=== PATIENT | female | born 1990 | race African-American/Black ===

== ENCOUNTER 2017-03-21 11:45 | Inpatient (IN) | payer OTHER ==
[2017-03-21] MEDS: DEXTROSE 5%-LACTATED RINGERS 1,000 ML IV SCH (14:00)
[2017-03-21 14:12] LABS: BASOPHIL 0.3 % (0-2.0); EOSINOPHIL 0.9 % (0-4.5); MCH 31.7 pg (25.7-33.7); MCHC 33.7 g/dl (32.0-36.0); MEAN CELL VOLUME 94.2 fl (80-96); MEAN PLT VOLUME 8.1 fl (7.5-11.1); NEUTROPHILS 66.6 % (42.8-82.8); PLATELET COUNT 200 K/MM3 (134-434); RDW 14.5 % (11.6-15.6); WHITE BLOOD COUNT 8.4 K/mm3 (4.0-10.0)
[2017-03-21 14:23] VITALS: BMI 30.5
[2017-03-21 14:34] LABS: ANION GAP 10 (8-16); CALCIUM 8.4 mg/dL (8.5-10.1); CO2 22 mmol/L (21-32); CREATININE 0.4 mg/dL (0.55-1.02); GLUCOSE,RANDOM 95 mg/dL (74-106)
[2017-03-21] MEDS ORDERED: DINOPROSTONE 10 MG VAGINAL SUPPOSITORY VG ONE (14:40)
--- NOTE | 2017-03-21 14:46 | HP ---
Past Medical History - Admission Chief Complaint: Posterm History of Present Illness: 26 yo , @ 40 weeks gestation, EDC 03/18/17, sent for BPP. BPP was 02/01; NST was not reassuring. Decision made for induction of labor with Cervidil. History Source: Patient Limitations to Obtaining History: No Limitations - Past Medical History ...: 1 ...Para: 0 ...Term: 0 ...: 0 ...Spon : 0 ...Induced : 0 ...Multiple Gestation: 0 ...LMP: 06/11/16 ... Weeks Gestation by Dates: 40.3 ...EDC by Dates: 03/18/17 ...EDC by Sono: 03/18/16 - Past Surgical History Past Surgical History: Yes: None Hx Myomectomy: No Hx Transabdominal Cerclage: No - Smoking History Smoking history: Never smoked Have you smoked in the past 12 months: No - Alcohol/Substance Use Hx Alcohol Use: No History of Substance Use: reports: None - Social History History of Recent Travel: No Family Disease History - Family Disease History Family History: Unremarkable Review of Systems - Review of Systems Constitutional: reports: No Symptoms Eyes: reports: No Symptoms HENT: reports: No Symptoms Neck: reports: No Symptoms Cardiovascular: reports: No Symptoms Respiratory: reports: No Symptoms Gastrointestinal: reports: No Symptoms Genitourinary: reports: No Symptoms Breasts: reports: No Symptoms Reported Musculoskeletal: reports: No Symptoms Integumentary: reports: No Symptoms Neurological: reports: No Symptoms Endocrine: reports: No Symptoms Hematology/Lymphatic: reports: No Symptoms Psychiatric: reports: No Symptoms Pain Intensity: 0 Physical Exam - Maternity Vital Signs: Vital Signs Temperature 98.8 F 03/21/17 14:00 Pulse Rate 83 03/21/17 14:00 Respiratory Rate 20 03/21/17 14:00 Blood Pressure 113/56 03/21/17 14:00 O2 Sat by Pulse Oximetry (%) Constitutional: Yes: Well Nourished Eyes: Yes: Conjunctiva Clear HENT: Yes: Atraumatic Neck: Yes: Supple Cardiovascular: Yes: Regular Rate and Rhythm - Abdominal Exam/OB Number of Fetuses: Single Presentation: Vertex Intensity: Unaware - Vaginal Exam/OB Dilatation (cm): 0 Effacement (%): 60 Amniotic Membrane Status: Intact Station: -2 - Physical Exam ...Motor Strength: WNL Psychiatric: Yes: Alert, Oriented - Labs Lab Results: CBC, BMP 03/21/17 13:50 03/21/17 13:50 Problem List - Problems (1) , post-term Code(s): O48.0 - POST-TERM Assessment/Plan Post Term Non Reassuring Heart rate Cervidil induction Continue close monitoring
[2017-03-21] MEDS ORDERED: SODIUM CHLORIDE 1,000 ML IV ONE (15:00)
[2017-03-21 15:06] LABS: INR 1.06 (0.82-1.09); PROTHROMBIN TIME (PATIENT) 11.7 SEC (9.98-11.88)
[2017-03-21 15:08] LABS: ACTIVATED PTT 30.1 SECONDS (26.9-34.4)
[2017-03-21] MEDS: PROMETHAZINE HCL 25 MG/1 ML VIAL IVPB PRN (21:55)
[2017-03-21] MEDS: BUTORPHANOL TARTRATE 1 MG/ML VIAL IVPUSH PRN (21:55)
[2017-03-22] MEDS: DEXTROSE 5%-LACTATED RINGERS 1,000 ML IV SCH (02:00)
[2017-03-22] MEDS ORDERED: OXYTOCIN 15 UNITS/ LR 250 ML 250 ML IVPB SCH (05:45)
[2017-03-22] MEDS: PROMETHAZINE HCL 25 MG/1 ML VIAL IVPB PRN (06:55)
[2017-03-22] MEDS: BUTORPHANOL TARTRATE 1 MG/ML VIAL IVPUSH PRN (06:55)
--- NOTE | 2017-03-22 10:27 | PN ---
Progress Note (short form) - Note Progress Note: 10.10 AM 1 cm/70%/MR/Vx -3 AROM done meconium stained light to moderate scalp electrode applied . FHR 150 , low btb variablity , cat-2 plan delivery by Primary c/section , pending OR available. stop trial of labor stop pitocin Selected Entries 03/22/17 09:00 Pulse Rate 98 H Blood Pressure 115/50 Laboratory Tests 03/21/17 03/21/17 03/21/17 13:50 13:50 13:50 WBC 8.4 Hgb 13.0 Hct 38.6 Plt Count 200 Neutrophils % 66.6 Lymphocytes % 24.1 PT with INR 11.70 INR 1.06 PTT (Actin FS) 30.1 Sodium 139 Potassium 4.0 Chloride 107 Carbon Dioxide 22 BUN 4 L Creatinine 0.4 L Random Glucose 95 Calcium 8.4 L RPR Titer 03/21/17 13:50 WBC Hgb Hct Plt Count Neutrophils % Lymphocytes % PT with INR INR PTT (Actin FS) Sodium Potassium Chloride Carbon Dioxide BUN Creatinine Random Glucose Calcium RPR Titer Nonreactive
[2017-03-22] MEDS ORDERED: ELECTROLYTE-148 SOLN 500 ML IV ONE (10:28)
[2017-03-22] MEDS ORDERED: ELECTROLYTE-148 SOLN 1,000 ML IV SCH (10:30)
[2017-03-22] MEDS ORDERED: CITRIC ACID/SODIUM CITRATE 30 ML UNIT-DOSE CUP PO ONE (10:45)
[2017-03-22] MEDS ORDERED: ONDANSETRON 4 MG/2 ML VIAL IVPB PRN (12:54)
[2017-03-22 13:08] LABS: ARTERIAL BLD GAS O2 SATURATION 19.3 % (90-98.9); ARTERIAL BLOOD GAS BASE EXCESS -5.5 meq/l (-2-2); ARTERIAL BLOOD GAS HCO3 23.4 meq/L (22-26); ARTERIAL BLOOD GAS PO2 18.8 mmHg (80-100)
[2017-03-22 13:09] LABS: ARTERIAL BLD GAS O2 SATURATION 8.2 % (90-98.9); ARTERIAL BLOOD GAS BASE EXCESS -6.8 meq/l (-2-2); ARTERIAL BLOOD GAS HCO3 24.1 meq/L (22-26); ARTERIAL BLOOD GAS PO2 13.3 mmHg (80-100)
[2017-03-22 13:10] LABS: ARTERIAL BLOOD GAS pH 7.13 (7.35-7.45); PT. ON O2? NO
[2017-03-22 13:11] LABS: PT. ON O2? NO
[2017-03-22] MEDS ORDERED: METHYLERGONOVINE MALEATE 0.2 MG/1 ML AMP IM PRN (13:12)
[2017-03-22] MEDS ORDERED: IBUPROFEN 800 MG/8 ML IJ IVPB PRN (13:12)
[2017-03-22] MEDS: D5W-LR W/ 20 UNITS OXYTOCIN 1,000 ML IV SCH (13:15)
--- NOTE | 2017-03-22 14:53 | PN ---
Delivery - Delivery Section: Primary, Low Flap Transverse (40.4/7 weeks, non reassuring FHR ,meconium failed induction of labor) Type of Anesthesia: Spinal Episiotomy/Laceration: None EBL (cc): 800 (robles out put 100 ml mary color ) Delivery, Single - Stages of Labor Date 1st Stage Initiatied: 03/21/17 Time 1st Stage Initiated: 21:00 Date of Delivery: 03/22/17 Time of Delivery: 12:33 Time Placenta Delivered: 12:34 Placenta: Yes: Manual Removal, Uterine Exploration - Condition of Shelter Monitor/Shellfish Manager Present: Yes Name: Dani Garcia Gender: Female Weight: 6 lb 9 oz Position: Right, OT Total Hours ROM (Hrs/Mins): 2hrs/24mins - 1 Minute Total Score: 9 5 Minutes Total Score: 9 - Feeding Plan Initial Plan: Exclusive throughout hospitalization Remarks - Remarks Remarks: 26 yrs, , 40.4/7 weeks s/p induction of labor with cervidil followed by pitocin admitted by Dr Smith on 03/21/17 2 [facility] for pncare.. Non Reassuring FHR , Meconium fluid , cx 1 cm dilated hence pt is taken for c/section intraop course uneventful
--- NOTE | 2017-03-22 15:21 | OP ---
Operative Note - Note: Operative Date: 03/22/17 Pre-Operative Diagnosis: 40.4 weeks, non reasuring FHR, meconium, failed induction of labor Operation: primary LFTC/Section Findings: 12.33 pm, baby girl, 9/9, ROT position wt 6'9" Afluid : meconium moderate Both tubes & ovaries normal Dr Jose Louise Interactive Account Manager in the OR Surgeon: Kassandra Angel Machine Operator Picker: Moi Allen Anesthesiologist/AUTOMOTIVE CONSULTANT: Coty Aguiar Anesthesia: Spinal Specimens Removed: placenta. cord blood gas. cord blood Estimated Blood Loss (mls): 800 Drains, Volume Out (mls): 100 (robles mary color ) Operative Report Dictated: Yes
[2017-03-22] MEDS ORDERED: DEXTROSE 5%-WATER - 50 ML IVPB ONE (16:13)
[2017-03-22] MEDS ORDERED: ceFAZolin SODIUM 1 GM VIAL ONE (16:13)
--- NOTE | 2017-03-22 16:34 | OP ---
DATE OF OPERATION: 03/22/2017 PREOPERATIVE DIAGNOSES: At 40.4 weeks, nonreassuring heart, meconium fluid, failed induction of labor. OPERATION DONE: Primary low-flap transverse section. SURGEON: Kassandra Angel MD METAL CUT OFF SAW TENDER: SERGE Matias ANESTHESIOLOGIST: Coty Aguiar MD ANESTHESIA: Spinal. FINDINGS: This is a 26-year-old, 1, para 0, who was induced with Cervidil due to nonreactive NST and biophysical 8 of 8. After Cervidil induction, Pitocin was started. Patient had FHR category 2 tracing and very low [id number] variability. After she had dilated up to 1 cm, 70%, membranes were ruptured. Meconium-stained liquid was noted, and scalp electrode was applied. Still, low [id number]-[id number] variability was noted, and some variable decelerations were noted; so, it was decided to deliver the patient by and stop the trial of labor. The Pitocin was discontinued. DESCRIPTION OF PROCEDURE: Consent was taken, and abdomen was shaved, prepped. Menjivar catheter was placed, and she was taken to the operating room table. Spinal anesthesia was given. She was placed in supine position. Abdomen was painted and draped in the usual manner. Pfannenstiel incision was made. The skin, subcutaneous tissue, and anterior rectus sheath were incised transversely. Bleeding points were clamped and cauterized. Rectus muscle was from the rectus sheath. Parietal peritoneum was opened vertically. Lower flap of the peritoneum was incised transversely. Lower uterine segment was incised transversely. Amniotic fluid was with meconium, and immediate oral and nasal suction was done. Baby was delivered from ROT position at 12:33 p.m., baby girl. Apgars were 9 and 9. Cord was clamped, cut and cord blood was collected for the cord blood gas by the nurse and cord blood was collected. Baby's weight was 6 pounds 9 ounces. Placenta was removed completely with the membranes, and the uterine cavity was cleaned. Then, closure of the uterine incision was done. Uterus was closed in 2 layers. First layer was a continuous locking with a Biosyn 0 suture. Second layer was continuous intermittent locking with a Biosyn 0 suture. Hemostasis was noted, and then, the bladder peritoneum was closed with the Biosyn 0 suture. Hemostasis was verified. Both tubes and ovaries were normal. Then, irrigation was done, and sponge, instrument, needle count was correct. Closure of the abdomen was done. Parietal peritoneum was closed with 0 Vicryl suture. Muscles were approximated together with Vicryl 0 suture, interrupted sutures, and the anterior rectus sheath was closed with Vicryl 0 continuous sutures. Hemostasis was checked underneath the anterior rectus sheath right before the closure of the rectus sheath. Then, the subcutaneous tissue hemostasis was checked. Subcutaneous tissue was approximated with interrupted sutures, and the skin was approximated with epifanio. Patient tolerated the procedure well, and she was transferred to the recovery room in stable condition.EBL 800 ml, Urine out put 100 ml intraop , mary color . Iv ancef 1 gm prior to incision was given Rambo [id number] MTDD
[2017-03-22] MEDS: CEFAZOLIN 1 GM in DEXTROSE 5%-WATER - 50 ML IVPB SCH (17:03)
[2017-03-23] MEDS ORDERED: DEXTROSE 5%-WATER - 50 ML IVPB ONE ×2 (01:24→09:42)
[2017-03-23] MEDS ORDERED: ceFAZolin SODIUM 1 GM VIAL ONE ×2 (01:25→09:42)
[2017-03-23] MEDS: CEFAZOLIN 1 GM in DEXTROSE 5%-WATER - 50 ML IVPB SCH ×2 (01:28→09:58)
[2017-03-23 07:56] LABS: BASOPHIL 0.3 % (0-2.0); EOSINOPHIL 0.8 % (0-4.5); MCH 31.7 pg (25.7-33.7); MCHC 33.4 g/dl (32.0-36.0); MEAN CELL VOLUME 94.8 fl (80-96); MEAN PLT VOLUME 8.1 fl (7.5-11.1); NEUTROPHILS 71.4 % (42.8-82.8); PLATELET COUNT 178 K/MM3 (134-434); RDW 14.4 % (11.6-15.6); WHITE BLOOD COUNT 13.4 K/mm3 (4.0-10.0)
--- NOTE | 2017-03-23 08:15 | PN ---
Progress Note (short form) - Note Progress Note: Anesthesia Pain Pt seen and examined S:alert and oriented comfortable O: Vital Signs Temperature 98.4 F 03/23/17 06:00 Pulse Rate 72 03/23/17 06:00 Respiratory Rate 18 03/23/17 06:00 Blood Pressure 104/60 03/23/17 06:00 O2 Sat by Pulse Oximetry (%) 99 03/22/17 14:45 CBC, BMP 03/23/17 07:46 03/21/17 13:50 A/P: s/p c section doing well post op continue current care Yony Mo MD
[2017-03-23] MEDS: ENOXAPARIN NA (PORCINE) 40 MG/0.4 ML DISP.SYRIN SQ SCH (09:58)
[2017-03-23] MEDS: PRENATAL VITAMINS W/ FOLIC ACID TABLET (FP) PO SCH (09:59)
[2017-03-23] MEDS ORDERED: oxyCODONE HCL 5 MG TABLET PO PRN (10:00)
[2017-03-23] MEDS: IBUPROFEN 600 MG TABLET (FP) PO PRN (12:56)
[2017-03-23] MEDS: ACETAMINOPHEN 325 MG TABLET (FP) PO PRN (12:58)
[2017-03-23] MEDS: SIMETHICONE 80 MG TAB.CHEW (FP) PO PRN (12:58)
[2017-03-23] MEDS ORDERED: BISACODYL 10 MG SUPP.RECT RC PRN (13:12)
[2017-03-23] MEDS ORDERED: FLU VACC QS2017-18 36MOS UP/PF 60 MCG/0.5 ML SYRINGE IM ONE (14:00)
--- NOTE | 2017-03-23 16:22 | PN ---
Progress Note (short form) - Note Progress Note: pod1 s/p c/s doing well, ambulating CBC, BMP 03/23/17 07:46 03/21/17 13:50 Last Vital Signs Temp Pulse Resp BP Pulse Ox 99 F 97 H 18 106/56 99 03/23/17 14:00 03/23/17 14:00 03/23/17 14:00 03/23/17 14:00 03/22/17 14:45 abdomen soft, no distension, no cva incision dry, clean ,no bleeding no calf tenderness no excess vaginal bleeding plan ambulate , advance diet
[2017-03-23] MEDS: FERROUS SO4 325 MG TABLET (FP) PO SCH (22:25)
[2017-03-23] MEDS: SENNOSIDES/DOCUSATE COMBO (SENNA PLUS) TABLET (UD) PO PRN (22:26)
[2017-03-24] MEDS: IBUPROFEN 600 MG TABLET (FP) PO PRN ×2 (00:54→10:47)
[2017-03-24] MEDS: SIMETHICONE 80 MG TAB.CHEW (FP) PO PRN ×4 (00:54→23:33)
[2017-03-24] MEDS: ACETAMINOPHEN 325 MG TABLET (FP) PO PRN ×4 (00:56→23:33)
[2017-03-24] MEDS: PRENATAL VITAMINS W/ FOLIC ACID TABLET (FP) PO SCH (10:48)
[2017-03-24] MEDS: FERROUS SO4 325 MG TABLET (FP) PO SCH ×2 (10:48→21:05)
[2017-03-24] MEDS: ENOXAPARIN NA (PORCINE) 40 MG/0.4 ML DISP.SYRIN SQ SCH (10:48)
[2017-03-24] MEDS: D5W-LR W/ 20 UNITS OXYTOCIN 1,000 ML IV SCH (13:33)
--- NOTE | 2017-03-24 13:59 | PN ---
Post Progress Note - Subjective Subjective: doinjg well, minimal pain Post Day: 2 Type of Delivery: Primary C/S Vital Signs: Vital Signs Temperature 98.7 F 03/24/17 10:00 Pulse Rate 92 H 03/24/17 10:00 Respiratory Rate 18 03/24/17 10:00 Blood Pressure 118/70 03/24/17 10:00 O2 Sat by Pulse Oximetry (%) 99 03/22/17 14:45 Breast Exam: Yes: Soft Uterus: Yes: Fundus Firm Incision: Yes: [place] intact Abdomen/GI: Yes: Abdomen soft Lochia: Yes: Rubra Lochia, amount: Small Extremities: Yes: Calves non-tender Perineum: Yes: Intact Activity: Ambulating - Labs Labs: CBC WBC 13.4 K/mm3 (4.0-10.0) H D 03/23/17 07:46 RBC 3.12 M/mm3 (3.60-5.2) L D 03/23/17 07:46 Hgb 9.9 GM/dL (10.7-15.3) L D 03/23/17 07:46 Hct 29.6 % (32.4-45.2) L D 03/23/17 07:46 MCV 94.8 fl (80-96) 03/23/17 07:46 MCH 31.7 pg (25.7-33.7) 03/23/17 07:46 MCHC 33.4 g/dl (32.0-36.0) 03/23/17 07:46 RDW 14.4 % (11.6-15.6) 03/23/17 07:46 Plt Count 178 K/MM3 (134-434) 03/23/17 07:46 MPV 8.1 fl (7.5-11.1) 03/23/17 07:46 Neutrophils % 71.4 % (42.8-82.8) 03/23/17 07:46 Lymphocytes % 19.4 % (8-40) 03/23/17 07:46 Monocytes % 8.1 % (3.8-10.2) 03/23/17 07:46 Eosinophils % 0.8 % (0-4.5) 03/23/17 07:46 Basophils % 0.3 % (0-2.0) 03/23/17 07:46 Assessment/Plan stable may dc home tomorrow reg diet
[2017-03-24] MEDS: oxyCODONE HCL 5 MG TABLET PO PRN ×2 (19:24→23:32)
[2017-03-24] MEDS: SENNOSIDES/DOCUSATE COMBO (SENNA PLUS) TABLET (UD) PO PRN (21:05)
--- NOTE | 2017-03-24 22:39 | DS ---
Physical Exam-LOAN OFFICER ASSISTANT Vital Signs: Vital Signs Temperature 98.7 F 03/24/17 10:00 Pulse Rate 92 H 03/24/17 10:00 Respiratory Rate 18 03/24/17 10:00 Blood Pressure 118/70 03/24/17 10:00 O2 Sat by Pulse Oximetry (%) 99 03/22/17 14:45 Constitutional: Yes: Pallor Eyes: Yes: WNL HENT: Yes: WNL Neck: Yes: WNL Cardiovascular: Yes: WNL Respiratory: Yes: WNL Gastrointestinal: Yes: WNL, Normal Bowel Sounds, Soft. No: Distention Renal/: Yes: WNL Pelvis: Yes: WNL ....Post : Yes: Uterus firm, Uterus non-tender, Moderate lochia rubra Breast(s): Yes: WNL (not engirged) Musculoskeletal: Yes: WNL Extremities: Yes: WNL. No: Calf Tenderness Edema: LLE: Trace, RLE: Trace Integumentary: Yes: Tattoos Wound/Incision: Yes: Clean/Dry, Well Approximated, Betsy Intact, Open to air. No: Draining, Reddened, Bleeding Neurological: Yes: WNL, Alert, Oriented ...Motor Strength: WNL Psychiatric: Yes: WNL, Alert, Oriented Labs: CBC, BMP 03/23/17 07:46 03/21/17 13:50 Delivery - Delivery Section: Primary, Low Flap Transverse (40.4/7 weeks, non reassuring FHR ,meconium failed induction of labor) Type of Anesthesia: Spinal Episiotomy/Laceration: None EBL (cc): 800 (robles out put 100 ml mary color ) Delivery, Single - Stages of Labor Date 1st Stage Initiatied: 03/21/17 Time 1st Stage Initiated: 21:00 Date of Delivery: 03/22/17 Time of Delivery: 12:33 Time Placenta Delivered: 12:34 Placenta: Yes: Manual Removal, Uterine Exploration - Condition of Fitness Sales Associate/Temperature Logging Operator Present: Yes Name: Dani Garcia Infant Gender: Female Weight: 6 lb 9 oz Position: Right, OT Total Hours ROM (Hrs/Mins): 2hrs/24mins - 1 Minute Total Score: 9 5 Minutes Total Score: 9 - [place] Feeding Plan Initial Plan: Exclusive throughout hospitalization Remarks - Remarks Remarks: 26 yrs, , 40.4/7 weeks s/p induction of labor with cervidil followed by pitocin admitted by Dr Smith on 03/21/17 2 [facility] for pncare.. Non Reassuring FHR , Meconium fluid , cx 1 cm dilated hence pt is taken for c/section intraop course uneventful post op course uneventful. Anemia noted, counselled Discharge to, rtc for betsy removal Discharge on 03/25/2017 Discharge Summary Reason For Visit: INDUCTION Current Active Problems Anemia (Acute) Delivery by emergency section (Acute) Failed induction of labor (Acute) Non-reassuring heart rate or rhythm affecting management of fetus (Acute) , post-term (Acute) Condition: Good - Instructions Diet, Activity, Other Instructions: Post Instructions DIET: Continue good diet high in protein, calcium, and iron rich foods. Drink at least eight (8) glasses of water daily in addition to other fluids. ct Regular diet MEDICATIONS: Continue vitamins and iron as previously directed. Motrin and Tylenol may be taken for minor discomfort. ACTIVITY: Mild to moderate exercise may be started in two (2) weeks. Take frequent rest periods. Resume normal activity after six (6) week check up. WOUND CARE OF OPERATIVE SITE: Continue use of perineal bottle until vaginal discharge stops. Keep area clean. Shower daily. Keep abdominal wound dry. Report any drainage or redness to physician. Tub baths, tampons and douches are not permitted for [address] Breast feeding & or Bottle feeding BREAST CARE: (For those that are not breast feeding): If engorgement occurs: Wear tight fitting bra. Take Tylenol or Motrin for pain. Apply cold packs (ice in bags to each breast ) FAMILY PLANNING: There are many control alternatives to pursue and they should be discussed at your first office visit. You may resume sexual activity after your six (6) week check up. (Remember, breast feeding is not a contraceptive) NEXT PHYSICIAN APPOINTMENT: Be certain to call for a one (1) week appointment, unless otherwise directed.RTC for betsy removal, wound check, within 1 week Call Clinic or got to Emergency Dept if you have any of the following: Heavy vaginal bleeding Painful urination Leg pain Unusual odor noted to vaginal bleeding High fever Red streaking noted on breast Referrals: Razmzan,Aquilino, MD [Staff Physician] - Disposition: HOME - Home Medications Comprehensive Discharge Medication List: Ambulatory Orders Albuterol Sulfate Inhaler - [Ventolin HFA Inhaler -] 2 inh PO Q4H 03/21/17 Vit #108/Iron/FA [ One Tablet] 1 each PO DAILY 03/21/17 Acetaminophen [Tylenol .Regular Strength -] 500 mg PO Q4H PRN #30 tablet Ferrous Sulfate [Feosol] 325 mg PO BID #60 tab 03/24/17 Ibuprofen [Motrin -] 600 mg PO Q4H PRN #30 tablet 03/24/17 Vitamins (Sjr) - 1 tab PO DAILY #30 tablet 03/24/17
[2017-03-25 07:18] LABS: BASOPHIL 0.2 % (0-2.0); EOSINOPHIL 1.8 % (0-4.5); MCH 32.3 pg (25.7-33.7); MCHC 34.1 g/dl (32.0-36.0); MEAN CELL VOLUME 94.7 fl (80-96); MEAN PLT VOLUME 7.8 fl (7.5-11.1); NEUTROPHILS 67.6 % (42.8-82.8); PLATELET COUNT 185 K/MM3 (134-434); WHITE BLOOD COUNT 8.1 K/mm3 (4.0-10.0)
[2017-03-25] MEDS: oxyCODONE HCL 5 MG TABLET PO PRN (08:36)
[2017-03-25] MEDS: SIMETHICONE 80 MG TAB.CHEW (FP) PO PRN (08:36)
[2017-03-25] MEDS: ACETAMINOPHEN 325 MG TABLET (FP) PO PRN (08:37)
[2017-03-25] MEDS: ENOXAPARIN NA (PORCINE) 40 MG/0.4 ML DISP.SYRIN SQ SCH (10:27)
[2017-03-25] MEDS: PRENATAL VITAMINS W/ FOLIC ACID TABLET (FP) PO SCH (10:27)
[2017-03-25] MEDS: FERROUS SO4 325 MG TABLET (FP) PO SCH (10:28)
[2017-03-25 12:37] VITALS: BP 111/69; PULSE 101; TEMP 99.6
--- NOTE | 2017-03-26 11:06 | PATH ---
Surgical Pathology Report Patient Name: GIOVANNY BALDERAS [facility]. Rec. #: [id number] /Age/Gender: 1990 (Age: 26) / F Account: [id number] Location: [facility] OBS/CONTRACTING ENGINEER Taken: 03/22/2017 Received: 03/23/2017 Reported: 03/26/2017 Physicians: Kassandra Angel M.D. Specimen(s) Received PLACENTA Clinical History 40.3 weeks post date Nonreassuring heart rate Final Diagnosis PLACENTA, DELIVERY: SMALL (391 GRAM) FOCALLY DISRUPTED THIRD TRIMESTER PLACENTA WITH SMALL INFARCT, MECONIUM HISTIOCYTOSIS WITH MEMBRANES, AND 3 VESSEL UMBILICAL CORD. Electronically Signed Ahmet Hendrix M.D. Gross Description The specimen is received fresh labeled placenta and is a 391 gram, 19 x 17 x 2 cm. placenta with attached membranes and umbilical cord. The attached membranes are glistening and translucent with slight green discoloration and insert marginally. The umbilical cord measures 22 cm. in length and averages 1.1 cm. in diameter. The cord inserts eccentrically, 4 cm. to the nearest margin. No true knots or strictures are identified. Cut surface of the umbilical cord reveals 3 vessels. The surface is delaney-blue with slight green discoloration and with minimal fibrin deposition and appropriate caliber vessels. The maternal surface is red-brown with focal defects. Sectioning reveals red-brown, spongy parenchyma. No lesions are identified. Guide Dog Trainer sections are submitted in three cassettes as follows: 1- membrane rolls and umbilical cord; 2-3- full thickness sections of placenta. [facility]/03/23/2017 the medical center/03/23/2017
== END 2017-03-25 14:35 | disposition home or self-care (01) | DRG 540 ==
LOC: JDEL 11:45 → JLDR 13:15 → J3W 03-22 14:44
PROVIDERS: ADMIT Obstetrics & Gynecology; ATTEND Obstetrics & Gynecology
PROC: 3E0P7GC Introduction of Other Therapeutic Substance into Female Reproductive, Via Natural or Artificial Opening (ICD-10-PCS; 2017-03-21)
PROC: 10D00Z1 Extraction of Products of Conception, Low, Open Approach (ICD-10-PCS; principal; 2017-03-22)
DX: O26.893 Other specified pregnancy related conditions, third trimester (principal); R03.0 Elevated blood-pressure reading, without diagnosis of hypertension; O76 Abnormality in fetal heart rate and rhythm complicating labor and delivery; O61.0 Failed medical induction of labor; O77.0 Labor and delivery complicated by meconium in amniotic fluid; O48.0 Post-term pregnancy; O99.02 Anemia complicating childbirth; D64.9 Anemia, unspecified; Z3A.40 40 weeks gestation of pregnancy; Z37.0 Single live birth
CPT/HCPCS: 36415; 36600; 80048; 82803; 85025; 85610; 85730; 86593; 86850; 86900; 86901; 88307-TC; 90686; G0008